=== PATIENT | female | born 1945 | race Caucasian/White ===

== ENCOUNTER 2019-10-18 08:16 | Inpatient (IN) | payer MEDICARE ==
[~2019-10-18] VITALS: Ht 157.5 cm; Wt 54.4 kg
[~2019-10-18 08:16] MED LIST: ALPRAZOLAM0.5 MG PO; CARVEDILOL3.125 MG PO; EFFIENT10 MG PO; PRAVASTATIN SOD40 MG PO; VITAMIN D32000 UNI1 PO
--- OUTSIDE RECORDS SUMMARY | 2019-10-18 08:18 | XMS REPORT | Summary of Care ---
Author Author SANDER Long, JOE Chavez Unknown Address Unknown Phone Unavailable Care Team Providers Care Delinquency Counselor Name Role Phone SANDER Long, JOE Unavailable Unavailable MARIA R LINDER N.P. Unavailable Unavailable JANNY Harris, AMIRA Unavailable Unavailable SANDER MARQUEZ WI, JOE Unavailable Unavailable Unavailable Unavailable Functional Status Name Dates Details Functional status health issues are not documented Status: Name Dates Details Cognitive status health issues are not documented Status: Problems Name Dates Details Vaginal cancer (184.0, C52) Status: Active Nicotine dependence (305.1, F17.200) Status: Active Vulvar cancer (184.4, C51.9) Status: Active Vulvar cancer (184.4, C51.9) Status: Active Anticoagulation monitoring, special range (V58.61, Z79.01) Status: Active Yeast infection (112.9, B37.9) Status: Active UTI (urinary tract infection) (599.0, N39.0) Status: Active Medications Name Dates Details ALPRAZolam 0.5 MG Oral Tablet TAKE 1 TABLET AT BEDTIME. * Start : 30-Nov-2018 Active Prasugrel HCl - 10 MG Oral Tablet TAKE 1 TABLET DAILY. * Refills: 0 * Start : 30-Nov-2018 Active Pantoprazole Sodium 40 MG Oral Tablet Delayed Release TAKE 1 TABLET DAILY. * Refills: 0 * Start : 30-Nov-2018 Active Carvedilol 3.125 MG Oral Tablet TAKE 1 TABLET TWICE DAILY, WITH MORNING AND EVENING MEAL * Refills: 0 * Start : 30-Nov-2018 Active Pravastatin Sodium 40 MG Oral Tablet TAKE 1 TABLET DAILY DIRECTED. * Refills: 0 * Start : 30-Nov-2018 Active 90 Tablet Bottle Lidocaine HCl 2 % GEL APPLY DIRECTED. * Quantity: 1 Refills: 2 KAILASH N.P., MARIA R * Start : 30-Nov-2018 Active 30 ML Tube Lidocaine 5 % External Ointment APPLY TO AFFECTED AREAS DIRECTED. * Quantity: 60 Refills: 6 JOE JAIN M.D. * Start : 28-Dec-2018 Active Lidocaine 5 % External Ointment APPLY TO AFFECTED AREAS DIRECTED. * Quantity: 60 Refills: 6 MARIA R LINDER N.P. * Start : 28-Dec-2018 Active traMADol HCl - 50 MG Oral Tablet TAKE 1 TABLET EVERY 6 HOURS PRN pain * Quantity: 60 Refills: 0 KAILASH Cortez.MARIA R Sweeney * Start : 01-Mar-2019 Active Fluconazole 150 MG Oral Tablet TAKE 1 TABLET Daily After Meals If symptoms persist, take 1 additional pill in 3 days. TDD:1 * Quantity: 2 Refills: 2 JANNY N.P.AMIRA * Start : 21-Jun-2019 Active Nystatin Powder Nystatin topical powder 100,000 unit/gram * Quantity: 1 Refills: 2 JANNY N.P., AMIRA * Start : 21-Jun-2019 Active Allergies and Adverse Reactions Name Dates Details codeine (Allergy) Status: Active Past Medical History Name Dates Details History of Heart attack (410.90, I21.9) Status: Resolved History of Heart disease (429.9, I51.9) Status: Resolved Procedures Procedure Dates Details History of Cardiac catheterization with stent placement Completed History of Total Abdominal Hysterectomy With Removal Of Both Ovaries Completed Immunization Name Dates Details Immunizations not documented Family History Name Dates Details Family history of malignant neoplasm of esophagus (V16.0, Z80.0) Status: Active Name Dates Details Family history of malignant neoplasm of colon (V16.0, Z80.0) Status: Active Social History Name Dates Details Unknown if ever smoked Vital Signs Date Test Result Details 21-Jun-20198:44 BP Systolic 135 mm[Hg] Status: Comments: Location: LUE; Position: Sitting BP Diastolic 81 mm[Hg] Status: Comments: Location: LUE; Position: Sitting Height 151 cm Status: Weight 59.42 kg Status: Body Mass Index Calculated 26.06 kg/m2 Status: Body Surface Area Calculated 1.55 m2 Status: Temperature 97.7 f Status: Comments: Method: Oral Heart Rate 66 /min Status: Results Date Description Value Details Results not documented Plan of Care Name Dates Details Planned Observations Planned Goals not documented Planned Encounters Appointment; JOE JAIN M.D. On: 20-Sep-2019 8:20 Interventions Provided Medication Changes* Fluconazole 150 MG Oral Tablet - Renew * Nystatin Powder - Renew Discussion/Summary* Ms. Jones is a 74 year old female who presents for vulvar cancer surveillance. * 1. Vulvar cancer: * -Vulva exam revealed two 0.5-1cm white plaques on R labia majora, no erythema/swelling/tenderness. * -Symptoms stable and well controlled at this time. No further intervention at this time. Patient does not desire to pursue hospice or additional treatment at this time, so will continue surveillance. * -Continue Lidocaine topical ointment PRN. Will send refills as requested. * -Discussed signs and symptoms of worsening disease, particularly as this pertains to pattern of spread. counseled patient for involvement of groin nodes and risk for spread of disease to the lungs, which are already compromised with cancer. Discussed symptoms of shortness of breath and cough as disease spreads to lungs. * -Counseled patient regarding fragile and friable tissue to the vulva and anticipate further bleeding if area is aggravated with cleansing or scraping. * 2. Lung cancer: Patient continues to smoke regularly 2 packs/week. Discussed symptoms of spread of disease, which would include worsening lung symptoms (sob, cough, wheezing), disease in mediastinum, and spread of disease to brain which would exhibit as balance issues, vision changes or headaches. At this time, patient continues to desire no intervention for her diseases. Will continue surveillance and supportive management. * 3. End of life care * -Out of hospital DNR DNI signed. * -Discussed pain and sx management. Patient does not currently like taking Tramadol for sedating effects. Recommended alternating Tylenol/Advil OTC PRN for inflammation and pain relief. If patient desires, appropriate to send Rx for Tramadol to patient's pharmacy for times of increased pain. * 4. Health maintenance: * -Continue management with Dr. Noble (cardiology)--pt reports appt 07/04/19. * -Encouraged balanced diet with softer/ground up foods to avoid further teeth/gum damage. Recommended f/u with dentist for management of tooth decay and gum disease. Encouraged increased hydration and frequent snacking to maintain blood sugar levels. Encouraged increased calcium and vitamin D intake. * -Encouraged multivitamin. * 5. Vaginal pierre: * -Nystatin topical powder ordered to be applied to groin PRN. * -Diflucan 150 mg PO x 1 day, take additional 150 mg in 3 days if symptoms not relieved, 2 refills. Patient reports intermittent yeast infections. Encouraged proper feminine hygiene to avoid moisture and bacteria to area. * -Continue changing incontinence pad after urination to avoid vulvar irritation and infection. * RTC 3 months for continued surveillance and supportive management. * Discussed above with patient and family (spent 20 minutes face to face) Patient counseled and examined with Dr. Jain. Amira Win [facility]. Questions answered. Instructions Name Dates Details Instructions not documented Encounters Appointment; JOE JAIN M.D. Encounter Diagnosis: Problem not documented On: 28-Sep-2018 10:00 Appointment; JOE JAIN M.D. Encounter Diagnosis: Problem not documented On: 12-Oct-2018 9:20 Appointment; JOE JAIN M.D. Encounter Diagnosis: Problem not documented On: 30-Nov-2018 8:20 Appointment; JOE JAIN M.D. Encounter Diagnosis: Problem not documented On: 28-Dec-2018 8:20 Appointment; JOE JAIN M.D. Encounter Diagnosis: Problem not documented On: 01-Mar-2019 8:40 Appointment; JOE JAIN M.D. Encounter Diagnosis: Problem not documented On: 21-Jun-2019 8:20
[2019-10-18] MEDS ORDERED: ALBUTEROL SULF 0.083% NEB SOLN 3 ML NEB NEB STA (08:20)
[2019-10-18] MEDS ORDERED: IPRATROPIUM BROMIDE 0.02% 2.5 ML NEB NEB STA (08:20)
[2019-10-18] MEDS ORDERED: MORPHINE SULFATE INJ 4 MG/ML INJ 1ML IV STA (08:25)
[2019-10-18] MEDS ORDERED: FAMOTIDINE 20 MG/2 ML VIAL IV STA (08:25)
[2019-10-18] MEDS ORDERED: SODIUM CHLORIDE 0.9% 1000ML 1,000 ML IV STA (08:25)
[2019-10-18] MEDS ORDERED: ONDANSETRON HCL INJ 2MG/ML 2ML 2 MG/ML VIAL IV STA (08:25)
[2019-10-18] MEDS ORDERED: ASPIRIN 81 MG CHEW TAB PO ONE (08:30)
[2019-10-18] MEDS ORDERED: SODIUM CHLORIDE 0.9% 1000ML 500 ML IV STA (08:36)
[2019-10-18 08:53] LABS: BASOPHILS # (AUTO) 0.1 (0.0-0.1); BASOPHILS % 0.3 % (0.0-1.0); EOSINOPHILS # (AUTO) 0.1 (0.0-0.4); EOSINOPHILS % 0.6 % (0.0-6.0); HEMATOCRIT 43.3 % (34.2-44.1); HEMOGLOBIN 13.6 g/dL (12.0-16.0); LYMPHOCYTES # (AUTO) 0.9 (1.0-3.2); LYMPHOCYTES % 6.4 % (18.0-39.1); MEAN CORPUSCULAR HEMOGLOBIN 30.5 pg (28-32); MEAN CORPUSCULAR HGB CONC 31.4 g/dL (31-35); MEAN CORPUSCULAR VOLUME 97.1 fL (81-99); MONOCYTES # (AUTO) 0.8 (0.2-0.8); MONOCYTES % 5.7 % (4.4-11.3); NEUTROPHILS # (AUTO) 12.4 (2.1-6.9); NEUTROPHILS % 86.4 % (38.7-80.0); PLATELET COUNT 247 x10e3/uL (140-360); RED BLOOD COUNT 4.46 x10e6/uL (3.6-5.1)
[2019-10-18 09:07] LABS: INR 0.98; PROTHROMBIN TIME 13.5 seconds (11.9-14.5)
[2019-10-18 09:08] LABS: PARTIAL THROMBOPLASTIN TIME 31.5 seconds (23.8-35.5)
[2019-10-18 09:17] LABS: ALBUMIN 3.6 g/dL (3.5-5.0); ALBUMIN/GLOBULIN RATIO 0.7 (0.8-2.0); ALKALINE PHOSPHATASE 80 IU/L (40-150); ANION GAP 16.2 mmol/L (8-16); BLOOD UREA NITROGEN 8 mg/dL (7-26); BUN/CREATININE RATIO 9 (6-25); CALCIUM 10.7 mg/dL (8.4-10.2); CARBON DIOXIDE 27 mmol/L (22-29); CHLORIDE 98 mmol/L (98-107); CREATINE KINASE 25 IU/L (29-168); EST GLOMERULAR FILTRATION RATE > 60 ML/MIN (60-); GLUCOSE 132 mg/dL (74-118); POTASSIUM 3.2 mmol/L (3.5-5.1); SODIUM 138 mmol/L (136-145)
--- NOTE | 2019-10-18 09:21 | Diagnostic Imaging Report ---
Chest, 1 view, 10/18/2019. History: Chest pain and shortness of breath. Comparison: 11/21/2007. Findings: The cardiomediastinal silhouette and pulmonary vasculature are mildly prominent. There is no focal consolidation or pleural effusion. Degenerative changes are noted in the shoulders. There are no acute osseous or soft tissue abnormalities. Impression: Mild cardiomegaly and vascular congestion. Signed by: J Luis Hooker on 10/18/2019 9:17 AM
[2019-10-18 09:36] LABS: ALANINE AMINOTRANSFERASE < 6 IU/L (0-55)
[2019-10-18 09:52] LABS: MAGNESIUM 1.9 MG/DL (1.3-2.1)
--- NOTE | 2019-10-18 10:52 | Diagnostic Imaging Report ---
CT of the chest, PE protocol, with contrast, 10/18/2019. History: Chest pain and shortness of breath. Comparison: Chest x-ray for today. Technique: Multidetector thin collimation CT scanning of the chest was performed from the level of the apices to the upper abdomen during the pulmonary arterial phase, after intravenous administration of contrast. Coronal and sagittal MIP reformations were obtained. RADIATION DOSE: Total DLP: 291 mGy*cm Dose modulation, iterative reconstruction, and/or weight based adjustment of the mA/kV was utilized to reduce the radiation dose to as low as reasonably achievable. Discussion: Chest: The pulmonary arteries are well-opacified without evidence of filling defect or vessel cut off. The main pulmonary artery is mildly enlarged measuring 3.5 cm in diameter. The heart is mildly enlarged. The aorta is normal in size with atherosclerotic plaque in the arch. Thyroid is unremarkable. Enlarged left hilar lymph nodes are present measuring up to 1.5 cm. An irregularly marginated retrocardiac mass measuring presently 6.6 x 4.3 cm is present medially in the superior segment of the left lower lobe, abutting the descending thoracic aorta and left atrium, compressing the left inferior pulmonary artery and vein and left inferior bronchus. There is adjacent patchy consolidation. Mild emphysematous disease is noted in the upper lungs. Scattered peripheral scarring is present throughout both lungs. No evidence of pleural effusion. Limited evaluation of the upper abdomen shows normal bilateral adrenal glands. A small hiatal hernia is present. Bones and soft tissues: Advanced degenerative changes are present throughout the thoracic and lumbar spine. There is severe anterior wedge compression deformity of the T10 vertebral body. IMPRESSION: 1. No evidence of acute pulmonary embolus. Mild cardiomegaly and pulmonary artery enlargement are present without evidence of shoshana pulmonary edema. 2. Left lower lobe mass abutting the heart and compressing left lower bronchovascular structures as described above. Consider tissue sampling with bronchoscopy. 3. T10 vertebral body compression deformity, age indeterminate. Signed by: J Luis Hooker on 10/18/2019 10:49 AM
[2019-10-18] MEDS ORDERED: CEFTRIAXONE SOD 1 GM/NS 50 ML 50 ML IV STA (11:01)
[2019-10-18] MEDS ORDERED: AZITHROMYCIN 500MG/NS 250 ML 250 ML IV STA (11:01)
[2019-10-18] MEDS ORDERED: MORPHINE SULFATE 2 MG/ML SYR 1ML IV PRN ×2 (11:15→20:15)
[2019-10-18] MEDS ORDERED: METOPROLOL TARTRATE 25 MG TAB PO SCH (11:15)
--- OUTSIDE RECORDS SUMMARY | 2019-10-18 11:17 | XMS REPORT ---
Author Author [facility] Address Unknown Phone Unavailable Care Team Providers Care Help Desk Intern Name Role Phone MISHA VIDAL Unavailable Unavailable Problems This patient has no known problems. Allergies, Adverse Reactions, Alerts This patient has no known allergies or adverse reactions. Medications This patient has no known medications. Results Test Description Test Time Test Comments Text Results Atomic Results Result Comments CT CHEST W 2019-10-18 10:32:00 [facility] [address] [id number] Patient Name: SOFYA LANZA MR #: [id number] : 1945 Age/Sex: 74/F Req #: [id number] Adm Physician: Ordered by: VIDAL CABRAL MD, MD Report #: [id number] Location: ER Room/Bed: Procedure: [id number] CT/CT CHEST W Exam Date: 10/18/19 Exam Time: 1000 REPORT STATUS: Signed CT of the chest, PE protocol, with contrast, 10/18/2019. History: Chest pain and shortness of breath. Comparison: Chest x-ray for today. Technique: Multidetector thin collimation CT scanning of the chest was performed from the level of the apices to the upper abdomen during the pulmonary arterial phase, after intravenous administration of contrast. Coronal and sagittal MIP reformations were obtained. RADIATION DOSE: Total DLP: 291 mGy*cm Dose modulation, iterative reconstruction, and/or weight based adjustment of the mA/kV was utilized to reduce the radiation dose to as low as reasonably achievable. Discussion: Chest: The pulmonary arteries are well-opacified without evidence of filling defect or vessel cut off. The main pulmonary artery is mildly enlarged measuring 3.5 cm in diameter. The heart is mildly enlarged. The aorta is normal in size with atherosclerotic plaque in the arch. Thyroid is unremarkable. Enlarged left hilar lymph nodes are present measuring up to 1.5 cm. An irregularly marginated retrocardiac mass measuring presently 6.6 x 4.3 cm is present medially in the superior segment of the left lower lobe, abutting the descending thoracic aorta and left atrium, compressing the left inferior pulmonary artery and vein and left inferior bronchus. There is adjacent patchy consolidation. Mild emphysematous disease is noted in the upper lungs. Scatte red peripheral scarring is present throughout both lungs. No evidence of pleural effusion. Limited evaluation of the upper abdomen shows normal bilateral adrenal glands. A small hiatal hernia is present. Bones and soft tissues: Advanced degenerative changes are present throughout the thoracic and lumbar spine. There is severe anterior wedge compression deformity of the T10 vertebral body. IMPRESSION: 1. No evidence of acute pulmonary embolus. Mild cardiomegaly and pulmonary artery enlargement are present without evidence of shoshana pulmonary edema. 2. Left lower lobe mass abutting the heart and compressing left lower bronchovascular structures as described above. Consider tissue sampling with bronchoscopy. 3. T10 vertebral body compression deformity, age indeterminate. Signed by: J Luis Hooker on 10/18/2019 10:49 AM Dictated By: J LUIS HOOKER MD 1049 Transcribed By: HERMILO on 10/18/19 1049 COPY TO: VIDAL CABRAL CHEST SINGLE (PORTABLE) 2019-10-18 09:16:00 [address] [id number] Patient Name: SOFYA LANZA MR #: [id number] : 1945 Age/Sex: 74/F Req #: [id number] Adm Physician: Ordered by: J LUIS LARA [facility] DIRECTOR Report #: [id number] Location: ER Room/Bed: Procedure: [id number] DX/CHEST SINGLE (PORTABLE) Exam Date: 10/18/19 Exam Time: 08 REPORT STATUS: Signed Chest, 1 view, 10/18/2019. History: Chest pain and shortness of breath. Comparison: 11/21/2007. Findings: The cardiomediastinal silhouette and pulmonary vasculature are mildly prominent. There is no focal consolidation or pleural effusion. Degenerative changes are noted in the shoulders. There are no acute osseous or soft tissue abnormalities. Impression: Mild cardiomegaly and vascular congestion. Signed by: J Luis Hooker on 10/18/2019 9:17 AM Dictated By: J LUIS HOOKER MD 6 Transcribed By: HERMILO on 10/18/19916 COPY TO: J LUIS LARA NP
[2019-10-18] MEDS ORDERED: KCL 20MEQ/.9 SOD CHL 1,000 ML IV ONE ×2 (11:30→16:15)
[2019-10-18 13:14] LABS: BILIRUBIN,URINE NEGATIVE (NEGATIVE); CLARITY,URINE SL CLOUDY (CLEAR); COLOR,URINE YELLOW (YELLOW); KETONES,URINE NEGATIVE (NEGATIVE); LEUKOCYTE ESTERASE ,URINE TRACE (NEGATIVE); NITRITE,URINE POSITIVE (NEGATIVE); PROTEIN,URINE DIPSTICK NEGATIVE (NEGATIVE); URINE UROBILINOGEN 0.2 mg/dL (0.2 - 1)
[2019-10-18 13:30] LABS: WBC,URINE (MAN) 21-50 /HPF (0-5)
[2019-10-18 13:31] LABS: BACTERIA,URINE MANY /HPF; EPITHELIAL CELLS,URINE MODERATE /LPF; MUCUS,URINE RARE (RARE)
[2019-10-18] MEDS ORDERED: ULTRAM50 MG PO (15:56)
[2019-10-18] MEDS ORDERED: PANTOPRAZOLE SO40 MG PO (15:56)
[2019-10-18] MEDS: FAMOTIDINE 20 MG/2 ML VIAL IV SCH ×2 (15:57→23:53)
[2019-10-18] MEDS ORDERED: ALPRAZOLAM 0.5 MG TAB PO PRN (16:30)
[2019-10-18] MEDS ORDERED: GUAIFENESIN/CODEINE 10 ML CUP PO PRN (16:30)
[2019-10-18] MEDS ORDERED: GUAIFENESIN/DEXTROMETHORPHAN LIQD 5 ML UDC NG PRN (16:45)
[2019-10-18] MEDS: CARVEDILOL 3.125 MG TAB PO SCH (17:00)
[2019-10-18 17:20] VITALS: BP 107/57
--- NOTE | 2019-10-18 17:45 | History and Physical ---
CHIEF COMPLAINT: Cough and chest congestion. HISTORY OF PRESENT ILLNESS: This is a 74-year-old white woman, who presents to [facility] Emergency Room with a 1-day history of worsening cough, chest congestion, and generalized body pain. The patient has chronic cough according to her adult daughter, but is getting much worse in last couple of days. The patient has vulvar cancer as well as well as a history of a lung mass. She is seeing an oncologist at [facility]. The adult daughter states that the oncologist told the patient in September 2019 that she was a candidate for hospice care. In the emergency room, the patient was found to have white blood cell count of 14,300 with 86% segmenters. The patient's hemoglobin was 13.6 g/dL. Also in the emergency room, the patient was found to have potassium of 3.2. The patient's BUN and creatinine are 8 and 0.9 respectively. In the emergency room, patient's urinalysis was done that revealed slightly cloudy yellow urine, positive nitrate, trace blood, trace leukocyte esterase, 6 to 10 red blood cells per high-power field and 21 to 50 white blood cells per high-power field. Urinalysis also revealed many bacteria. Moreover, in the emergency room, the patient underwent a chest x-ray that revealed mild cardiomegaly and vascular congestion. Moreover, she underwent a CT of the chest with intravenous contrast in the emergency room that revealed a mildly enlarged heart with an irregularly marginated retrocardiac mass measuring 6 x 6 x 4.3 cm in the superior segment of the left lower lobe. This lung mass appears to be abutting the descending thoracic aorta as well as left atrium. The CT of the chest also revealed mild emphysematous disease in the upper lungs. Advanced degenerative changes are present throughout the thoracic and lumbar spine. No evidence of acute pulmonary embolus was appreciated. The patient was admitted for further evaluation and treatment. REVIEW OF SYSTEMS: GENERAL: The patient has lost 20 pounds in the last two months. She denies any fever or chills, but she has been very weak in last few days. HEENT: No headaches. No visual changes. CARDIOVASCULAR/RESPIRATORY: She has a chronic cough that has been much worse over the last couple of days. She does complain of chest discomfort when coughing. Denies and hemoptysis. GI: Slight nausea. She states that it is very difficult for her to swallow food. Denies any diarrhea. : Denies any urinary tract infection symptoms, but states her urine has been kaufman, dark and malodorous. NEUROMUSCULAR: Denies any limb weakness or numbness. The patient complains of generalized weakness. ALLERGIES: 1. PENICILLIN. 2. SULFA ANTIBIOTICS. 3. CODEINE. 4. DIAZEPAM. 5. HYDROCODONE. 6. PENTAZOCINE. CURRENT MEDICATIONS: 1. Alprazolam 0.5 mg once daily as needed for anxiety. 2. Carvedilol 3.125 mg b.i.d. 3. Vitamin D3 2000 units daily. 4. Pantoprazole 40 mg daily. 5. Effient 10 mg daily. 6. Pravastatin 40 mg at bedtime. 7. Tramadol 50 mg q.6 hours p.r.n. pain. FAMILY HISTORY: Multiple family members with coronary artery disease. SOCIAL HISTORY: The patient is a and lives alone. She is retired. The patient smokes cigarettes. The patient denies any alcohol use. The patient has two adult daughters, who are very much involved in her health care needs. PAST MEDICAL HISTORY: 1. Coronary artery disease. 2. Hypertensive heart disease. 3. Tobacco abuse. 4. Hyperlipidemia. 5. Anxiety disorder. 6. Vulvar cancer. 7. Lung mass diagnosed in January 2019. 8. Squamous cell skin cancer (left pinna). PAST SURGICAL HISTORY: 1. Coronary stent placement on multiple occasions. 2. Total abdominal hysterectomy with bilateral salpingo-oophorectomy. 3. Bilateral tubal ligation. 4. Left pinna squamous cell carcinoma resection. PHYSICAL EXAMINATION: GENERAL: She is awake, alert, and fluent. Her two adult daughters are at bedside. VITAL SIGNS: Height 5 feet 2 inches, weight 120 pounds, BMI 21 (the patient lost 20 pounds in last two months). Blood pressure is 124/84, pulse 94, respiratory rate is 24, oxygen saturation is 98% on 2 L of oxygen, temperature 98.0. INTEGUMENT: Skin is warm and dry. No pallor, jaundice, or diaphoresis. HEENT: Anicteric sclerae. Moist mucous membranes. NECK: Supple. No evidence of jugular venous distention. CARDIOVASCULAR: Distant heart sounds. Tachycardic rate, regular rhythm. LUNGS: The patient has diminished breath sounds at bases. ABDOMEN: Benign. EXTREMITIES: No edema or deformity. NEUROLOGIC: Intact. IMPRESSION: 1. Left-sided lung mass (primary neoplasm versus metastatic disease). 2. Postobstructive left-sided pneumonia. 3. Vulvar cancer. 4. Urinary tract infection. 5. Coronary artery disease (history of coronary stent placement). 6. Tobacco abuse. 7. Chronic obstructive pulmonary disease. 8. Do not resuscitate status. PLAN: 1. We will honor the patient's do not resuscitate code status. 2. Gentle intravenous fluids. 3. We will continue intravenous antibiotics for her pneumonia and urinary tract infection. 4. Order antitussive agents. 5. I spoke at length with patient's two adult daughters in regard to patient's enlarging lung mass and postobstructive pneumonia. 6. We also discussed end of life issues. 7. The family and the family and the patient are receptive to the idea of home hospice care. 8. We will discontinue Effient and pravastatin. I spent an hour in the care of this patient. MD SIMONE Kelly/AMADOU /[id number] MTDD
[2019-10-18] MEDS: TRAMADOL HCL 50 MG TAB PO SCH ×2 (18:00→23:53)
--- NOTE | 2019-10-18 19:10 | NUR ---
PATIENT'S O2 SATURATION HAS FALLEN BETWEEN 79-84% ON ROOM AIR. PLACED NASAL CANNULA AT 3 LITERS AND SATURATION HAS RISEN UP TO 91%, PATIENT SHOWS NO SIGNS OF DISTRESS, CONTINUING TO MONITOR.
[2019-10-18] MEDS: ONDANSETRON HCL INJ 2MG/ML 2ML 2 MG/ML VIAL IV PRN (19:15)
[2019-10-18] MEDS: MORPHINE SULFATE INJ 4 MG/ML INJ 1ML IV PRN ×2 (19:15→22:15)
[2019-10-18 19:37] LABS: CREATINE KINASE MB 1.8 ng/mL (0-5.0)
[2019-10-18 20:03] VITALS: BP 100/59
[2019-10-18 20:30] VITALS: BP 100/59
[2019-10-18] MEDS: CEFTRIAXONE SOD 1 GM/NS 50 ML 50 ML IV SCH (20:30)
--- NOTE | 2019-10-18 20:30 | NUR ---
PATIENT IS AOX3 AND IN STABLE CONDITION. PATIENT IS RESTING WITH BOTH EYES CLOSED AND FAMILY MEMBER IS AT BED SIDE. NASAL CANNULA IS INTACT AND FLOWING AT 3 LITERS, PAIN IS NO LONGER AN ISSUE. BED IS IN LOWEST POSITON, BOTH SIDE RAILS ARE UP, CALL LIGHT WITHIN REACH, WILL CONTINUE TO MONITOR.
[2019-10-18] MEDS ORDERED: SODIUM CHLORIDE 0.9% 50ML 50 ML ONE (22:19)
[2019-10-18] MEDS ORDERED: IOPAMIDOL 370 MG/ML 200 ML INFUS..BTL INJ ONE (22:20)
[2019-10-19 00:18] VITALS: BP 109/55
[2019-10-19] MEDS: ONDANSETRON HCL INJ 2MG/ML 2ML 2 MG/ML VIAL IV PRN (01:18)
[2019-10-19] MEDS: MORPHINE SULFATE INJ 4 MG/ML INJ 1ML IV PRN ×2 (01:18→05:05)
[2019-10-19 04:20] VITALS: BP 111/55
[2019-10-19 05:44] LABS: BASOPHILS # (AUTO) 0.1 (0.0-0.1); BASOPHILS % 0.5 % (0.0-1.0); EOSINOPHILS # (AUTO) 0.1 (0.0-0.4); EOSINOPHILS % 0.5 % (0.0-6.0); HEMATOCRIT 36.1 % (34.2-44.1); HEMOGLOBIN 11.4 g/dL (12.0-16.0); LYMPHOCYTES # (AUTO) 0.9 (1.0-3.2); LYMPHOCYTES % 9.9 % (18.0-39.1); MEAN CORPUSCULAR HEMOGLOBIN 30.7 pg (28-32); MEAN CORPUSCULAR HGB CONC 31.6 g/dL (31-35); MEAN CORPUSCULAR VOLUME 97.3 fL (81-99); MONOCYTES # (AUTO) 0.9 (0.2-0.8); MONOCYTES % 9.7 % (4.4-11.3); NEUTROPHILS # (AUTO) 7.3 (2.1-6.9); PLATELET COUNT 196 x10e3/uL (140-360); RED BLOOD COUNT 3.71 x10e6/uL (3.6-5.1); RED CELL DISTRIBUTION WIDTH 13.2 % (11.7-14.4)
[2019-10-19] MEDS: TRAMADOL HCL 50 MG TAB PO SCH (06:00)
[2019-10-19 06:03] LABS: CREATINE KINASE MB 1.5 ng/mL (0-5.0)
[2019-10-19 06:34] LABS: ALBUMIN 2.6 g/dL (3.5-5.0); ALBUMIN/GLOBULIN RATIO 0.6 (0.8-2.0); ALKALINE PHOSPHATASE 58 IU/L (40-150); ANION GAP 13.8 mmol/L (8-16); BLOOD UREA NITROGEN 6 mg/dL (7-26); BUN/CREATININE RATIO 7 (6-25); CALCIUM 9.7 mg/dL (8.4-10.2); CARBON DIOXIDE 25 mmol/L (22-29); CHLORIDE 102 mmol/L (98-107); CHOL/HDL RATIO 3.7 (3.0-3.6); CHOLESTEROL 132 MD/DL (0-199); CREATININE, SERUM 0.86 mg/dL (0.57-1.11); EST GLOMERULAR FILTRATION RATE > 60 ML/MIN (60-); GLUCOSE 115 mg/dL (74-118); HDL CHOLESTEROL 36 MG/DL (40-60); LDL CHOLESTEROL 80 MG/DL (60-130); MAGNESIUM 1.9 MG/DL (1.3-2.1); PHOSPHORUS 2.3 MG/DL (2.3-4.7); POTASSIUM 3.8 mmol/L (3.5-5.1); SODIUM 137 mmol/L (136-145); TRIGLYCERIDES 78 MG/DL (0-149)
[2019-10-19 06:36] LABS: ALANINE AMINOTRANSFERASE < 6 IU/L (0-55)
--- NOTE | 2019-10-19 07:10 | NUR ---
pt alert resp even and unlabored at this time no distress noted, pt able to make needs known, call light in reach , no c/o pain when asked, pt family member at bedside.
[2019-10-19] MEDS ORDERED: PANTOPRAZOLE SOD 40 MG TABEC PO SCH (07:30)
[2019-10-19 08:33] VITALS: BP 116/58
[2019-10-19 08:49] VITALS: BP 116/58
[2019-10-19] MEDS ORDERED: ASPIRIN 81 MG ENTERIC COATED PO SCH (09:00)
[2019-10-19] MEDS: CARVEDILOL 3.125 MG TAB PO SCH (09:12)
[2019-10-19] MEDS: CEFTRIAXONE SOD 1 GM/NS 50 ML 50 ML IV SCH (09:12)
--- NOTE | 2019-10-19 10:27 | NUR ---
SIGNED [facility] CONTACTED REP AND WAS ABLE TO START PROCESS, SHE WILL MEET WITH THE FAMILY IN APPROXIMATELY 30 MINUTES, WILL UPDATE FOR TIME FRAME OF DISCHARGE.
--- NOTE | 2019-10-19 11:53 | Discharge Summary ---
ADMITTING DIAGNOSES: 1. Left-sided lung mass (primary neoplasm versus metastatic disease). 2. Postobstructive left-sided pneumonia. 3. Vulvar cancer. 4. Urinary tract infection. 5. Coronary artery disease (history of coronary artery stent placement). 6. Tobacco abuse. 7. Chronic obstructive pulmonary disease. DISCHARGE DIAGNOSES: 1. Left-sided lung mass (primary neoplasm versus metastatic disease). 2. Postobstructive left-sided pneumonia. 3. Vulvar cancer. 4. Urinary tract infection. 5. Coronary artery disease (history of coronary artery stent placement). 6. Tobacco abuse. 7. Chronic obstructive pulmonary disease. 8. Do not resuscitate code status. HOSPITAL COURSE: This is a 74-year-old white woman, who was initially admitted to [facility] with diagnosis of left-sided lung mass that was thought to be either secondary to primary neoplasm versus metastatic disease. She does have a history of vulvar cancer and is seeing an oncologist at [facility]. On admission, the patient was diagnosed with postobstructive left-sided pneumonia as well as urinary tract infection. The patient improved clinically with intravenous antibiotics namely ceftriaxone 1 g intravenous twice a day. The patient's brief hospitalization was unremarkable. Soon after admission, the patient made herself a do not resuscitate code status. Also, during this hospitalization, end of life issues were discussed with the patient and her two adult daughters. During this hospital stay, the patient elected to proceed with palliative treatment form home hospice care. CONDITION ON DISCHARGE: Stable with extremely poor prognosis. DISCHARGE MEDICATIONS: 1. Ceftin 500 b.i.d. for 10 days. 2. Pantoprazole 40 mg daily. 3. Carvedilol 3.25 mg b.i.d. 4. Morphine sulfate immediate release 15 mg intravenous every 4 hours p.r.n. pain. 5. Guaifenesin with dextromethorphan 2 teaspoons every 4 hours p.r.n. cough. 6. Alprazolam 0.5 mg once daily as needed for anxiety. 7. Tramadol 50 mg q.i.d. p.r.n., mild pain. FOLLOWUP INSTRUCTIONS: As previously stated, the patient will be discharged home under hospice care. Kwasi E Orahood, MD MEO/AMADOU /[id number]
--- NOTE | 2019-10-19 12:00 | NUR ---
SPOKE WITH FAMILY CONFIRMING THAT THEY ARE SET AND SIGNED UP WITH [facility] AND WILL BEGIN SERVICE TODAY UPON DISCHARGE SPOKE WITH DR KINNEY AND CONFIRMED ABLE TO GET ALL INFORMATION TO THE HOSPICE COMPANY AND ALL SET UP READY FOR DISCHARGE
[2019-10-19 12:10] VITALS: BP 98/59
--- NOTE | 2019-10-19 13:59 | NUR ---
pt discharged home with Hospice no prescription given, iv site removed, no swelling no redness to site.
== END 2019-10-19 14:10 | disposition hospice, home (50) | DRG 180 ==
LOC: ER 08:16 → ERHOLD 11:14 → MED/SURG2 17:29
PROVIDERS: ADMIT Internal Medicine; ATTEND Internal Medicine
DX: D49.1 Neoplasm of unspecified behavior of respiratory system (principal); J18.9 Pneumonia, unspecified organism; N39.0 Urinary tract infection, site not specified; I25.10 Atherosclerotic heart disease of native coronary artery without angina pectoris; Z95.5 Presence of coronary angioplasty implant and graft; F17.200 Nicotine dependence, unspecified, uncomplicated; Z66 Do not resuscitate; J44.9 Chronic obstructive pulmonary disease, unspecified; C51.9 Malignant neoplasm of vulva, unspecified; I51.7 Cardiomegaly; M47.894 Other spondylosis, thoracic region; M47.896 Other spondylosis, lumbar region; F41.9 Anxiety disorder, unspecified; Z85.828 Personal history of other malignant neoplasm of skin; Z51.5 Encounter for palliative care
CPT/HCPCS: 36415; 71045; 71260; 80053; 80061; 81001; 82550; 82553; 83690; 83735; 83880; 84100; 84484; 85025; 85610; 85730; 87040; 87086; 87186; 87400; 93005; 93306; 94640; 99284; J0456; J0696; J2270; J2405; J7030; Q9967